=== PATIENT | female | born 1945 | race Caucasian/White ===

== ENCOUNTER 2017-04-12 05:34 | Day surgery (SDC) | payer MEDICARE, OTHER ==
[~2017-04-12] VITALS: Ht 167.6 cm; Wt 79.0 kg
--- NOTE | 2017-04-17 07:54 | OR ---
ADMIT: 04/12/2017 RM/LOC: [facility] MR#: [id number] [facility] [address] [place] [id number] [place] [address] [place] [id number] Operative/Delivery Room Report SEX: F AGE: 71 : 1945 SURGERY DATE: 04/12/2017 SURGEON: Tevin Fam MD PREOPERATIVE DIAGNOSIS: Colon cancer with completion of therapy. POSTOPERATIVE DIAGNOSIS: Colon cancer with completion of therapy. PROCEDURE: 1. PowerPort removal. 2. Complete colonoscopy. ANESTHESIA: IV general. DESCRIPTION OF PROCEDURE: The patient was taken to the procedure room and placed supine on the hospital cart. IV sedation was established. The area around the left chest wall port was prepped and draped in the standard surgical fashion. Local anesthetic was used to anesthetize the skin and subcutaneous tissue around the port site. The prior scar was incised and dissection proceeded sharply to the port capsule. The port, the Prolene sutures, and catheter were removed intact. Ligation of the catheter tract was performed with 3-0 Vicryl suture. Skin edges were approximated with 4-0 Monocryl in a subcuticular fashion and Dermabond. Sponge, needle, and instrument counts were correct at the end of this portion of the procedure. The patient was then placed in a left side down position on her hospital cart. IV sedation was established. A rectal exam was performed and there were no palpable abnormalities. A flexible colonoscope was advanced under direct visualization through the entire colon to the ileocolonic anastomosis. This was widely patent without evidence of recurrence. Care was taken upon withdrawal of the scope to examine mucosa of the colon. The transverse colon and descending colon were normal. In the sigmoid colon, there were scattered diverticulosis. The scope was withdrawn to the rectum and this was normal on inspection. Air was suctioned. The patient tolerated the procedure well and transferred to the recovery area in stable condition. Tevin Fam MD/ jordy JOB #: [id number] CC: Tevin Fam, Attending Physician FAMILY PHYSICIAN, Family Physician
== END 2017-04-12 09:40 | disposition home or self-care (01) ==
LOC: SSS 05:34
PROC: 0DJD8ZZ Inspection of Lower Intestinal Tract, Via Natural or Artificial Opening Endoscopic (ICD-10-PCS; principal; 2017-04-12)
PROC: 0JPT0XZ Removal of Tunneled Vascular Access Device from Trunk Subcutaneous Tissue and Fascia, Open Approach (ICD-10-PCS; principal; 2017-04-12)
DX: K57.30 Diverticulosis of large intestine without perforation or abscess without bleeding (principal); Z85.038 Personal history of other malignant neoplasm of large intestine; Z88.2 Allergy status to sulfonamides; Z90.49 Acquired absence of other specified parts of digestive tract; Z90.710 Acquired absence of both cervix and uterus; Z90.79 Acquired absence of other genital organ(s); Z98.890 Other specified postprocedural states